=== PATIENT | male | born 1980 | race Caucasian/White ===

== ENCOUNTER 2016-12-23 16:02 | Emergency (ER) | payer MEDICAID ==
[2016-12-23 16:16] VITALS: BP 124/72; PULSE 113; RESP 22; TEMP 97.5; O2SAT 97
--- NOTE | 2016-12-23 16:34 | EDPHY ---
H & P Time Seen by Provider: 12/23/16 16:17 HPI/ROS: CHIEF COMPLAINT: Neck pain and weakness. HISTORY OF PRESENT ILLNESS: The patient is a 36 year old male presenting with neck pain and weakness for the past 2 weeks. The patient states he woke up with some neck stiffness and his neck has progressively become more weak and painful. The patient is only able to manually lift his neck. His pain occurs when he tries to raise his head. The pain radiates down both sides of the neck. He denies recent trauma. He has been taking Ibuprofen and leftover narcotics for pain. 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 He has a history of upper thoracic spine compression fractures. He denies recent sickness. No cold-like symptoms. REVIEW OF SYSTEMS: A comprehensive 10 point review of systems is otherwise negative aside from elements mentioned in the history of present illness. Past Medical/Surgical History: History of compression fractures. Social History: Currently unemployed. No alcohol use. Denies IV drug use. Smoking Status: Never smoked Physical Exam: General Appearance: Alert, pleasant Eyes: Pupils equal and round, no conjunctival pallor or injection ENT, Mouth: Mucous membranes moist Neck: neck held in flexion, has difficulty keeping head upright, No adenopathy and no midline/paraspinous tenderness, rotation without pain Respiratory: Lungs are clear to auscultation Cardiovascular: Regular rate and rhythm Gastrointestinal: Abdomen is soft and non-tender Neurological: A&O, window trimmer strength 5/5, sensory intact to light touch, normal gait Skin: Warm and dry Extremities: Multiple track rubio on both upper extremities. Psychiatric: Mood and affect normal Constitutional: Initial Vital Signs Temperature (C) 36.4 C 12/23/16 16:14 Heart Rate 113 H 12/23/16 16:14 Respiratory Rate 22 H 12/23/16 16:14 Blood Pressure 124/72 H 12/23/16 16:14 O2 Sat (%) 97 12/23/16 16:14 O2 Delivery Mode Room Air Allergies/Adverse Reactions: No Known Allergies Allergy (Verified 12/23/16 16:13) Home Medications: Medication Instructions Recorded NK [No Known Home Meds] 12/23/16 Medical Decision Making ED Course/Re-evaluation: The patient presents with neck pain and weakness that has been ongoing for weeks. The patient reports pain when trying to raise his head. He reports no recent trauma. On exam, he has no cervical tenderness to palpation. The patient tells me he has been taking Ibuprofen and leftover Narcotics to help his pain. Plan to treat his pain with lidoderm patch. CT cervical spine was ordered. The patient was asked about IV drug use and he denies IVDA. However, he has multiple track rubio on both upper extremities. He seemed to get upset that I was asking about IVDA. I told him that there are multiple ways to treat pain and that for now, I will start with a lidoderm patch. 4:55 p.m.: The patient declines the CT cervical spine. He would like to leave AMA. He is unhappy that I asked him about IVDA. I encouraged him to stay for the CT to r/o epidural abscess, fracture, other pathology. He declines. He will f/u with Dr. Forde in the office. - Data Points Medications Given: Discontinued Medications Lidocaine (Lidoderm 5%) 1 ea TD EDNOW ONE Stop: 12/23/16 16:42 Last Admin: 12/23/16 16:58 Dose: 1 ea Departure - Departure Disposition: Against Medical Advice Referrals: NONE *PRIMARY CARE P,. [Primary Care Provider] - As per Instructions Report Scribed for: Livia Goldstein Report Scribed by: Anna Cardenas Date of Report: 12/23/16 Time of Report: 16:34 Physician Review and Approval Statement: 12/23/16 16:34 Portions of this note were transcribed by a medical driver. I personally performed the history, physical exam, and medical decision-making; and confirmed the accuracy of the information in the transcribed note.
[2016-12-23] MEDS ORDERED: LIDOCAINE 5% 1 EA PATCH TD ONE (16:41)
[2016-12-23] MEDS ORDERED: PATCH REMOVAL 1 EA PATCH TD SCH (21:00)
== END 2016-12-23 17:00 | disposition left against medical advice (07) ==
DX: R53.1 Weakness (principal)

== ENCOUNTER → 2016-12-25 | Outpatient (CLI) | payer MEDICAID | LOC: FIMAGING 11:29 | PROVIDERS: ATTEND Family Medicine | DX: M48.54XD Collapsed vertebra, not elsewhere classified, thoracic region, subsequent encounter for fracture with routine healing (principal); M99.72 Connective tissue and disc stenosis of intervertebral foramina of thoracic region; M40.204 Unspecified kyphosis, thoracic region ==